=== PATIENT | female | born 1995 | race Caucasian/White ===

== ENCOUNTER 2022-11-09 21:27 | Emergency (ER) | payer MEDICAID ==
[~2022-11-09] VITALS: Ht 172.7 cm; Wt 114.3 kg
[2022-11-09 21:37] VITALS: BP 124/64
--- NOTE | 2022-11-09 21:48 | NUR ---
PT TO BED #1
--- NOTE | 2022-11-09 21:50 | NUR ---
Patient resting in bed, A/Ox4, chest rise and fall symmetrical, no s/s of distress, on monitor.
[2022-11-09] MEDS ORDERED: KETOROLAC 30 MG/ML VIAL IM ONE (22:50)
--- NOTE | 2022-11-09 23:00 | NUR ---
Patient resting in bed, A/Ox4, chest rise and fall symmetrical, no c/o pain or s/s of distress, on monitor.
[2022-11-09] MEDS ORDERED: NAPR-54 PO (23:46)
[2022-11-09] MEDS ORDERED: CYCL-711 PO (23:46)
[2022-11-10 00:08] VITALS: BP 110/58
[2022-11-17] MEDS ORDERED: NAPR-54 PO (18:52)
[2022-11-17] MEDS ORDERED: CYCL-711 PO (18:53)
== END 2022-11-10 00:08 | disposition home or self-care (01) ==
LOC: MED 21:27
DX: S46.811A Strain of other muscles, fascia and tendons at shoulder and upper arm level, right arm, initial encounter (principal); X58.XXXA Exposure to other specified factors, initial encounter; Y93.89 Activity, other specified; Y92.89 Other specified places as the place of occurrence of the external cause; Y99.8 Other external cause status
CPT/HCPCS: 73030; 96372; 99283; J1885; Q0092

== ENCOUNTER → 2022-11-17 | Emergency (ER) | payer MEDICAID ==
[~2022-11-17] VITALS: Ht 177.8 cm; Wt 84.4 kg
[~2022-11-17] MED LIST: CYCL-711 PO; NAPR-54 PO
[2022-11-17 17:53] VITALS: BP 133/79; PULSE 69; RESP 18; TEMP 97.4; O2SAT 99
--- NOTE | 2022-11-17 19:02 | NUR ---
PATIENT DC BY
== END | disposition home or self-care (01) ==
LOC: MED 17:46
DX: M25.511 Pain in right shoulder (principal); Z79.899 Other long term (current) drug therapy
CPT/HCPCS: 73030; 99283

== ENCOUNTER 2023-06-03 21:03 | Emergency (ER) | payer MEDICAID ==
[~2023-06-03] VITALS: Ht 170.2 cm; Wt 120.2 kg
[2023-06-03 21:31] VITALS: BP 113/62; PULSE 105; RESP 20; TEMP 100.1; O2SAT 99
[2023-06-04 00:25] VITALS: TEMP 98.4
[2023-06-04] MEDS ORDERED: KETOROLAC 30 MG/ML VIAL IVP ONE (00:40)
[2023-06-04] MEDS ORDERED: ONDANSETRON 4 MG/2 ML VIAL IVP ONE (00:40)
[2023-06-04 01:23] LABS: APPEARANCE,URINE CLEAR (CLEAR); BILIRUBIN,URINE NEGATIVE (NEGATIVE); BLOOD, URINE TRACE-I (NEGATIVE); COLOR,URINE YELLOW (YELLOW); LEUKOCYTE ESTERASE ,URINE 1+ (NEGATIVE); NITRITE, URINE NEGATIVE (NEGATIVE); PROTEIN,URINE TRACE (NEGATIVE); UGLUCOSE NEGATIVE (NEGATIVE); UROBILINOGEN,URINE 0.2 EU/dL (0.2 - 1)
[2023-06-04 01:50] LABS: ALBUMIN 3.5 g/dL (3.4-5.0); BILIRUBIN,DIRECT 0.1 mg/dL (0.0-0.3); TOTAL BILIRUBIN 0.4 mg/dL (0.0-1.0); TOTAL PROTEIN, SERUM 7.5 g/dL (6.4-8.2)
[2023-06-04 01:52] LABS: BASOPHILS % (AUTO) 0.2 % (0.0-2.0); EOSINOPHILS % (AUTO) 0.5 % (0.0-4.0); HEMATOCRIT 38.9 % (36-48); HEMOGLOBIN 13.1 g/dL (12.0-16.0); LYMPHOCYTES # (AUTO) 0.5 K/uL (2.5-16.5); LYMPHOCYTES % (AUTO) 7.6 % (20.5-51.1); MEAN CORPUSCULAR HEMOGLOBIN 28 pg (27-31); MEAN CORPUSCULAR HGB CONC 34 g/dL (33-37); MEAN CORPUSCULAR VOLUME 81.9 fL (80-94); MONOCYTES # (AUTO) 0.3 K/uL (0.8-1.0); MONOCYTES % (AUTO) 5.1 % (1.7-9.3); NEUTROPHILS # (AUTO) 5.8 K/uL (1.8-7.7); NEUTROPHILS % (AUTO) 86.6 % (42.2-75.2); PLATELET COUNT (AUTO) 250 K/uL (140-450); RED BLOOD CELL COUNT(AUTO) 4.75 MIL/uL (4.20-5.40); WHITE BLOOD COUNT (AUTO) 6.7 K/uL (4.8-10.8)
[2023-06-04 01:56] LABS: ANION GAP 14.7 (8-16); CALCIUM 8.3 mg/dL (8.5-10.1); CARBON DIOXIDE 24.8 mmol/L (21-32); CREATININE 0.8 mg/dL (0.6-1.3); POTASSIUM 3.5 mmol/L (3.5-5.1)
[2023-06-04 02:15] LABS: BACTERIA,URINE 3+ /HPF (None Seen); MUCUS,URINE 2+ /LPF (None Seen); RBC,URINE 0-5 /HPF (0-5); SQUAMOUS EPITHELIAL CELL,UR 0-3 (FEW) /LPF (0-3 (FEW))
[2023-06-04] MEDS ORDERED: KETOROLAC 30 MG/ML VIAL ONE (02:25)
[2023-06-04] MEDS ORDERED: ONDANSETRON 4 MG/2 ML VIAL ONE (02:26)
[2023-06-04 02:48] LABS: FLU A ANTIGEN negative (NEGATIVE); FLU B ANTIGEN NEGATIVE (NEGATIVE)
[2023-06-04] MEDS ORDERED: ONDA-188 PO (05:35)
[2023-06-04 05:48] VITALS: O2SAT 97
[2023-06-04 06:05] VITALS: BP 103/47; PULSE 83; RESP 15; O2SAT 98
== END 2023-06-04 06:05 | disposition home or self-care (01) ==
LOC: MED 21:03
DX: K80.20 Calculus of gallbladder without cholecystitis without obstruction (principal); K80.50 Calculus of bile duct without cholangitis or cholecystitis without obstruction; Z20.822 Contact with and (suspected) exposure to COVID-19; Z79.899 Other long term (current) drug therapy; Z79.1 Long term (current) use of non-steroidal anti-inflammatories (NSAID)
CPT/HCPCS: 36415; 74177; 76705; 80048; 80076; 81001; 81025; 83690; 85025; 87086; 87426; 87804; 96374; 96375; 99285; J1885; J2405; Q0092; Q9967